=== PATIENT | female | born 1935 | race Caucasian/White ===

== ENCOUNTER → 2016-09-04 | Outpatient (CLI) | payer MEDICARE, BC ==
[~2016-09-04] MED LIST: ALBUTEROL0.83 MG/ML IH; ASPIRIN81 M1 PO; ASPIRIN81 M2 PO; ATIVAN0.5 M1 PO; AZITHROMYCIN250 MG PO; COMBIVENT U/D3 M2 INH; DYAZIDE 37.5/251 CAP PO; LOPRESSOR PO; MAXZIDE 37.5 M1 EACH PO; MAXZIDE 75/50 T1 TA1 PO; OMNICEF300 M1 PO; PREDNISONE PO; SYMBICORT INH; TESSALON PERLE100 M1 PO; ZITHROMAX PO
[2016-09-04 11:32] LABS: INR 1.3; PROTHROMBIN TIME (PATIENT) 14.2 SECONDS (9.5-12.4)
[2016-09-04 11:40] LABS: BUN/CREATININE RATIO 22.85; CALCIUM SERUM 10.3 mg/dL (8.4-10.2); CREATININE SERUM 1.4 mg/dL (0.6-1.4); GLOM FILT RATE Estimated 34.7 mL/min (>60); POTASSIUM 3.7 mmol/L (3.5-5.1)
== END | disposition home or self-care (01) ==
LOC: SLAB 10:51
PROVIDERS: Internal Medicine Interventional Cardiology
DX: I48.2 Chronic atrial fibrillation (principal); I10 Essential (primary) hypertension
CPT/HCPCS: 36415; 80048; 85610

== ENCOUNTER → 2016-09-12 | Outpatient (CLI) | payer MEDICARE, BC ==
[2016-09-12 09:49] LABS: INR 1.7; PROTHROMBIN TIME (PATIENT) 19.5 SECONDS (9.5-12.4)
== END | disposition home or self-care (01) ==
LOC: SLAB 09:21
PROVIDERS: Internal Medicine Interventional Cardiology
DX: Z51.81 Encounter for therapeutic drug level monitoring (principal); I48.2 Chronic atrial fibrillation; Z79.01 Long term (current) use of anticoagulants
CPT/HCPCS: 36415; 85610

== ENCOUNTER → 2016-09-25 | Outpatient (CLI) | payer MEDICARE, BC ==
[2016-09-25 12:27] LABS: INR 1.4; PROTHROMBIN TIME (PATIENT) 15.6 SECONDS (9.5-12.4)
[2016-09-25 12:34] LABS: BUN/CREATININE RATIO 24.28; CALCIUM SERUM 10.2 mg/dL (8.4-10.2); CREATININE SERUM 1.4 mg/dL (0.6-1.4); GLOM FILT RATE Estimated 34.7 mL/min (>60)
== END | disposition home or self-care (01) ==
LOC: SLAB 12:00
PROVIDERS: Internal Medicine Interventional Cardiology
DX: I10 Essential (primary) hypertension (principal); I48.2 Chronic atrial fibrillation
CPT/HCPCS: 36415; 80048; 85610

== ENCOUNTER → 2016-09-27 | Outpatient (CLI) | payer MEDICARE, BC ==
[2016-09-27 12:09] LABS: INR 1.3; PROTHROMBIN TIME (PATIENT) 14.8 SECONDS (9.5-12.4)
== END | disposition home or self-care (01) ==
LOC: SLAB 10:49
PROVIDERS: Internal Medicine Interventional Cardiology
DX: Z51.81 Encounter for therapeutic drug level monitoring (principal); I48.91 Unspecified atrial fibrillation; Z79.899 Other long term (current) drug therapy
CPT/HCPCS: 36415; 85610

== ENCOUNTER → 2016-09-29 | Outpatient (CLI) | payer MEDICARE, BC ==
[2016-09-29 11:54] LABS: INR 1.7; PROTHROMBIN TIME (PATIENT) 19.5 SECONDS (9.5-12.4)
== END | disposition home or self-care (01) ==
LOC: SLAB 10:53
PROVIDERS: Internal Medicine Interventional Cardiology
DX: Z51.81 Encounter for therapeutic drug level monitoring (principal); I48.91 Unspecified atrial fibrillation; Z79.01 Long term (current) use of anticoagulants
CPT/HCPCS: 36415; 85610

== ENCOUNTER → 2016-10-02 | Outpatient (CLI) | payer MEDICARE, BC ==
[2016-10-02 11:22] LABS: INR 1.6; PROTHROMBIN TIME (PATIENT) 18.6 SECONDS (9.5-12.4)
== END | disposition home or self-care (01) ==
LOC: SLABONLY 10:16
PROVIDERS: Internal Medicine Interventional Cardiology
DX: Z51.81 Encounter for therapeutic drug level monitoring (principal); I48.91 Unspecified atrial fibrillation; Z79.01 Long term (current) use of anticoagulants
CPT/HCPCS: 36415; 85610

== ENCOUNTER → 2016-10-06 | Outpatient (CLI) | payer MEDICARE, BC ==
[2016-10-06 10:08] LABS: INR 1.6; PROTHROMBIN TIME (PATIENT) 17.7 SECONDS (9.5-12.4)
== END | disposition home or self-care (01) ==
LOC: SLAB 09:08
PROVIDERS: Internal Medicine Interventional Cardiology
DX: Z51.81 Encounter for therapeutic drug level monitoring (principal); I48.91 Unspecified atrial fibrillation; Z79.01 Long term (current) use of anticoagulants
CPT/HCPCS: 85610

== ENCOUNTER → 2016-10-10 | Outpatient (CLI) | payer MEDICARE, BC ==
[2016-10-10 10:50] LABS: PROTHROMBIN TIME (PATIENT) 34.3 SECONDS (9.5-12.4)
== END | disposition home or self-care (01) ==
LOC: SLAB 10:17
PROVIDERS: Internal Medicine Interventional Cardiology
DX: Z51.81 Encounter for therapeutic drug level monitoring (principal); I48.91 Unspecified atrial fibrillation; Z79.01 Long term (current) use of anticoagulants
CPT/HCPCS: 36415; 85610

== ENCOUNTER → 2016-10-17 | Outpatient (CLI) | payer MEDICARE, BC ==
[2016-10-17 10:55] LABS: INR 3.4; PROTHROMBIN TIME (PATIENT) 39.3 SECONDS (9.5-12.4)
== END | disposition home or self-care (01) ==
LOC: SLAB 09:33
PROVIDERS: Internal Medicine Interventional Cardiology
DX: Z51.81 Encounter for therapeutic drug level monitoring (principal); I48.91 Unspecified atrial fibrillation; Z79.01 Long term (current) use of anticoagulants
CPT/HCPCS: 36415; 85610

== ENCOUNTER → 2016-10-24 | Outpatient (CLI) | payer MEDICARE, BC ==
[2016-10-24 10:16] LABS: PROTHROMBIN TIME (PATIENT) 22.7 SECONDS (9.5-12.4)
== END | disposition home or self-care (01) ==
LOC: SLABONLY 09:13
PROVIDERS: Internal Medicine Interventional Cardiology
DX: Z51.81 Encounter for therapeutic drug level monitoring (principal); I48.91 Unspecified atrial fibrillation; Z79.01 Long term (current) use of anticoagulants
CPT/HCPCS: 36415; 85610

== ENCOUNTER → 2016-10-31 | Outpatient (CLI) | payer MEDICARE, BC ==
[2016-10-31 10:44] LABS: INR 1.8; PROTHROMBIN TIME (PATIENT) 20.1 SECONDS (9.5-12.4)
== END | disposition home or self-care (01) ==
LOC: SLABONLY 09:10
PROVIDERS: Internal Medicine Interventional Cardiology
DX: Z51.81 Encounter for therapeutic drug level monitoring (principal); Z79.01 Long term (current) use of anticoagulants
CPT/HCPCS: 36415; 85610

== ENCOUNTER → 2016-11-07 | Outpatient (CLI) | payer MEDICARE, BC ==
[2016-11-07 10:43] LABS: INR 1.8; PROTHROMBIN TIME (PATIENT) 20.7 SECONDS (9.5-12.4)
== END | disposition home or self-care (01) ==
LOC: SLABONLY 09:29
PROVIDERS: Internal Medicine Interventional Cardiology
DX: Z51.81 Encounter for therapeutic drug level monitoring (principal); I48.91 Unspecified atrial fibrillation; Z79.899 Other long term (current) drug therapy
CPT/HCPCS: 36415; 85610

== ENCOUNTER → 2016-11-13 | Outpatient (CLI) | payer MEDICARE, BC ==
[2016-11-13 11:08] LABS: INR 2.3; PROTHROMBIN TIME (PATIENT) 26.5 SECONDS (9.5-12.4)
== END | disposition home or self-care (01) ==
LOC: SLAB 09:05
PROVIDERS: Internal Medicine Interventional Cardiology
DX: Z51.81 Encounter for therapeutic drug level monitoring (principal); I48.91 Unspecified atrial fibrillation; Z79.899 Other long term (current) drug therapy
CPT/HCPCS: 36415; 85610

== ENCOUNTER → 2016-11-20 | Outpatient (CLI) | payer MEDICARE, BC ==
[2016-11-20 12:44] LABS: INR 2.5; PROTHROMBIN TIME (PATIENT) 28.2 SECONDS (9.5-12.4)
== END | disposition home or self-care (01) ==
LOC: SLAB 11:22
PROVIDERS: Internal Medicine Interventional Cardiology
DX: Z51.81 Encounter for therapeutic drug level monitoring (principal); I48.2 Chronic atrial fibrillation; Z79.899 Other long term (current) drug therapy
CPT/HCPCS: 36415; 85610

== ENCOUNTER → 2016-11-27 | Outpatient (CLI) | payer MEDICARE, BC ==
[2016-11-27 10:50] LABS: INR 1.7; PROTHROMBIN TIME (PATIENT) 19.1 SECONDS (9.5-12.4)
== END | disposition home or self-care (01) ==
LOC: SLAB 09:52
PROVIDERS: Internal Medicine Interventional Cardiology
DX: Z51.81 Encounter for therapeutic drug level monitoring (principal); I48.91 Unspecified atrial fibrillation; Z79.899 Other long term (current) drug therapy
CPT/HCPCS: 36415; 85610

== ENCOUNTER → 2016-12-04 | Outpatient (CLI) | payer MEDICARE, BC ==
[2016-12-04 10:59] LABS: INR 4.2; PROTHROMBIN TIME (PATIENT) 48.3 SECONDS (9.5-12.4)
== END | disposition home or self-care (01) ==
LOC: SLAB 09:39
PROVIDERS: Internal Medicine Interventional Cardiology
DX: Z51.81 Encounter for therapeutic drug level monitoring (principal); I48.91 Unspecified atrial fibrillation; Z79.899 Other long term (current) drug therapy
CPT/HCPCS: 36415; 85610

== ENCOUNTER → 2016-12-11 | Outpatient (CLI) | payer MEDICARE, BC ==
[2016-12-11 11:29] LABS: INR 4.1
== END | disposition home or self-care (01) ==
LOC: SLABONLY 09:47
PROVIDERS: Internal Medicine Interventional Cardiology
DX: Z51.81 Encounter for therapeutic drug level monitoring (principal); I48.91 Unspecified atrial fibrillation; Z79.899 Other long term (current) drug therapy
CPT/HCPCS: 36415; 85610

== ENCOUNTER → 2016-12-13 | Outpatient (CLI) | payer MEDICARE, BC ==
[2016-12-13 10:13] LABS: INR 1.9; PROTHROMBIN TIME (PATIENT) 20.7 SECONDS (9.5-12.4)
== END | disposition home or self-care (01) ==
LOC: SLAB 08:48
PROVIDERS: Internal Medicine Interventional Cardiology
DX: Z51.81 Encounter for therapeutic drug level monitoring (principal); I48.91 Unspecified atrial fibrillation; Z79.899 Other long term (current) drug therapy
CPT/HCPCS: 36415; 85610

== ENCOUNTER → 2016-12-19 | Outpatient (CLI) | payer MEDICARE, BC ==
[2016-12-19 10:09] LABS: INR 3.9; PROTHROMBIN TIME (PATIENT) 44.1 SECONDS (9.5-12.4)
== END | disposition home or self-care (01) ==
LOC: SLABONLY 08:43
PROVIDERS: Internal Medicine Interventional Cardiology
DX: Z51.81 Encounter for therapeutic drug level monitoring (principal); I48.91 Unspecified atrial fibrillation; Z79.01 Long term (current) use of anticoagulants
CPT/HCPCS: 36415; 85610

== ENCOUNTER → 2016-12-26 | Outpatient (CLI) | payer MEDICARE, BC ==
[2016-12-26 10:00] LABS: INR 1.9; PROTHROMBIN TIME (PATIENT) 21.4 SECONDS (9.5-12.4)
== END | disposition home or self-care (01) ==
LOC: SLAB 08:51
PROVIDERS: Internal Medicine Interventional Cardiology
DX: Z51.81 Encounter for therapeutic drug level monitoring (principal); I48.0 Paroxysmal atrial fibrillation; Z79.899 Other long term (current) drug therapy
CPT/HCPCS: 36415; 85610

== ENCOUNTER → 2017-01-02 | Outpatient (CLI) | payer MEDICARE, BC ==
[2017-01-02 11:08] LABS: INR 1.9; PROTHROMBIN TIME (PATIENT) 22.1 SECONDS (9.5-12.4)
== END | disposition home or self-care (01) ==
LOC: SLAB 08:32
PROVIDERS: Internal Medicine Interventional Cardiology
DX: Z51.81 Encounter for therapeutic drug level monitoring (principal); I48.91 Unspecified atrial fibrillation; Z79.01 Long term (current) use of anticoagulants
CPT/HCPCS: 36415; 85610

== ENCOUNTER → 2017-01-09 | Outpatient (CLI) | payer MEDICARE, BC ==
[2017-01-09 11:32] LABS: INR 2.3
== END | disposition home or self-care (01) ==
LOC: SLAB 09:48
PROVIDERS: Internal Medicine Interventional Cardiology
DX: Z51.81 Encounter for therapeutic drug level monitoring (principal); I48.91 Unspecified atrial fibrillation; Z79.899 Other long term (current) drug therapy
CPT/HCPCS: 36415; 85610

== ENCOUNTER → 2017-01-16 | Outpatient (CLI) | payer MEDICARE, BC ==
[2017-01-16 10:39] LABS: INR 2.8; PROTHROMBIN TIME (PATIENT) 32.5 SECONDS (9.5-12.4)
== END | disposition home or self-care (01) ==
LOC: SLABONLY 09:02
PROVIDERS: Internal Medicine Interventional Cardiology
DX: Z51.81 Encounter for therapeutic drug level monitoring (principal); I48.91 Unspecified atrial fibrillation; Z79.01 Long term (current) use of anticoagulants
CPT/HCPCS: 36415; 85610

== ENCOUNTER → 2017-01-23 | Outpatient (CLI) | payer MEDICARE, BC ==
[2017-01-23 10:30] LABS: INR 2.5; PROTHROMBIN TIME (PATIENT) 28.4 SECONDS (9.5-12.4)
== END | disposition home or self-care (01) ==
LOC: SLABONLY 09:12
PROVIDERS: Internal Medicine Interventional Cardiology
DX: Z51.81 Encounter for therapeutic drug level monitoring (principal); I48.91 Unspecified atrial fibrillation; Z79.01 Long term (current) use of anticoagulants
CPT/HCPCS: 36415; 85610

== ENCOUNTER → 2017-01-30 | Outpatient (CLI) | payer MEDICARE, BC ==
[2017-01-30 10:15] LABS: INR 2.8; PROTHROMBIN TIME (PATIENT) 32.2 SECONDS (9.5-12.4)
== END | disposition home or self-care (01) ==
LOC: SLAB 08:15
PROVIDERS: Internal Medicine Interventional Cardiology
DX: Z51.81 Encounter for therapeutic drug level monitoring (principal); I48.91 Unspecified atrial fibrillation; Z79.01 Long term (current) use of anticoagulants
CPT/HCPCS: 36415; 85610

== ENCOUNTER → 2017-02-13 | Outpatient (CLI) | payer MEDICARE, BC ==
[2017-02-13 10:25] LABS: INR 2.7; PROTHROMBIN TIME (PATIENT) 31.1 SECONDS (9.5-12.4)
== END | disposition home or self-care (01) ==
LOC: SLAB 08:46
PROVIDERS: Internal Medicine Interventional Cardiology
DX: Z51.81 Encounter for therapeutic drug level monitoring (principal); I48.91 Unspecified atrial fibrillation; Z79.01 Long term (current) use of anticoagulants
CPT/HCPCS: 36415; 85610